=== PATIENT | male | born 1980 | race Caucasian/White ===

== ENCOUNTER 2017-12-24 16:11 | Emergency (ER) | payer SELFPAY ==
[~2017-12-24] VITALS: Ht 175.3 cm; Wt 110.0 kg
[2017-12-24] MEDS ORDERED: LORTAB 5/3255 MG PO (17:15)
[2017-12-24] MEDS ORDERED: MOTRIN800 MG PO (17:15)
[2017-12-24 17:20] VITALS: BP 141/84
== END 2017-12-24 17:20 | disposition home or self-care (01) | DRG 556 ==
LOC: ED 16:11
DX: M79.89 Other specified soft tissue disorders (principal); M25.472 Effusion, left ankle; M25.572 Pain in left ankle and joints of left foot; M79.672 Pain in left foot; F17.210 Nicotine dependence, cigarettes, uncomplicated

== ENCOUNTER 2019-04-21 12:17 | Emergency (ER) | payer SELFPAY ==
[~2019-04-21] VITALS: Ht 175.3 cm; Wt 120.0 kg
[~2019-04-21 12:17] MED LIST: LORTAB 5/3255 MG PO; MOTRIN800 MG PO
[2019-04-21 13:11] LABS: GFR > 60 ML/MIN (>=60 (CALC)); GFR FOR AFR.AMER. > 60 ML/MIN (>=60 (CALC))
[2019-04-21 13:26] LABS: HEMATOCRIT 48.4 % (39.0-50.0); HEMOGLOBIN 16.1 g/dl (14.0-18.0); IMMATURE GRANULOCYTES 0.5 % (0.0-5.0); MEAN CELL VOLUME 92.5 fL CALC (80.0-100.0); MEAN CORPUSCULAR HGB 30.8 pG CALC (26.0-32.0); MEAN CORPUSCULAR HGB CONC 33.3 g/L CALC (32.0-36.0); NEUT# 9.87 thou/uL (1.82-7.42); RED BLOOD COUNT 5.23 mill/uL (4.70-6.10); RED CELL DISTRI WIDTH 12.6 % (11.5-15.5)
[2019-04-21 13:37] LABS: ANION GAP 23 (6-22 (CALC)); BUN 6 mg/dL (9-20); BUN/CREATININE RATIO 9 (12-20 (CALC)); CARBON DIOXIDE 19 mmol/l (22-30); CHLORIDE 102 mmol/l (95-108); CREATININE 0.6 mg/dL (0.7-1.3); GFR > 60 ML/MIN (>=60 (CALC)); GFR FOR AFR.AMER. > 60 ML/MIN (>=60 (CALC)); POTASSIUM 4.3 mmol/l (3.5-5.1); SODIUM 140 mmol/l (137-146)
[2019-04-21 16:06] VITALS: BP 168/82
== END 2019-04-21 15:50 | disposition short-term general hospital (02) | DRG 603 ==
LOC: ED 12:17
PROVIDERS: Family Medicine
DX: L03.211 Cellulitis of face (principal); J98.8 Other specified respiratory disorders; K08.89 Other specified disorders of teeth and supporting structures
CPT/HCPCS: Q9967

== ENCOUNTER 2019-11-02 16:28 | Emergency (ER) | payer SELFPAY ==
[2019-11-02] MEDS ORDERED: ULTRAM50 MG PO (19:04)
[2019-11-02 19:12] VITALS: BP 140/98
== END 2019-11-02 19:15 | disposition home or self-care (01) | DRG 556 ==
LOC: ED 16:28
DX: M25.562 Pain in left knee (principal); M25.462 Effusion, left knee; F17.210 Nicotine dependence, cigarettes, uncomplicated

== ENCOUNTER 2020-05-03 16:32 | Emergency (ER) | payer SELFPAY ==
[~2020-05-03] VITALS: Ht 175.3 cm; Wt 130.0 kg
[~2020-05-03 16:32] MED LIST changes: +ULTRAM50 MG PO
[2020-05-03 18:47] VITALS: BP 146/77
== END 2020-05-03 18:53 | disposition home or self-care (01) | DRG 556 ==
LOC: ED 16:32
DX: M25.571 Pain in right ankle and joints of right foot (principal); F17.210 Nicotine dependence, cigarettes, uncomplicated

== ENCOUNTER 2020-08-11 17:26 | Emergency (ER) | payer OTHER ==
[~2020-08-11] VITALS: Ht 175.3 cm; Wt 127.0 kg
[2020-08-11] MEDS ORDERED: TESTOST CYP200 MG/ML IM (19:49)
[2020-08-11 20:18] LABS: HEMATOCRIT 44.3 % (39.0-50.0); HEMOGLOBIN 14.5 g/dl (14.0-18.0); IMMATURE GRANULOCYTES 0.3 % (0.0-5.0); MEAN CELL VOLUME 92.9 fL CALC (80.0-100.0); MEAN CORPUSCULAR HGB 30.4 pG CALC (26.0-32.0); MEAN CORPUSCULAR HGB CONC 32.7 g/dL CAL (32.0-36.0); NEUT# 8.19 thou/uL (1.82-7.42); RED BLOOD COUNT 4.77 mill/uL (4.70-6.10); RED CELL DISTRI WIDTH 13.4 % (11.5-15.5)
[2020-08-11 20:36] LABS: ALBUMIN 4.4 g/dL (3.2-5.0); ALKALINE PHOSPHATASE 78 u/l (38-126); ANION GAP 14 (6-22 (CALC)); BILIRUBIN, TOTAL 0.6 mg/dL (0.0-1.4); BUN 9 mg/dL (9-20); BUN/CREATININE RATIO 13 (12-20 (CALC)); CHLORIDE 103 mmol/l (95-108); CREATININE 0.8 mg/dL (0.7-1.3); GFR > 60 ML/MIN (>=60 (CALC)); GFR FOR AFR.AMER. > 60 ML/MIN (>=60 (CALC)); POTASSIUM 4.3 mmol/l (3.5-5.1); SGOT/AST 35 u/l (17-59); SODIUM 137 mmol/l (137-146); TOTAL PROTEIN 7.4 g/dL (6.3-8.2)
[2020-08-11 20:39] LABS: CARBON DIOXIDE 24 mmol/l (22-30)
[2020-08-11] MEDS ORDERED: INDOCIN25 MG PO (21:22)
[2020-08-11] MEDS ORDERED: COLCHICINE0.6 M2 PO (21:22)
[2020-08-11 21:40] VITALS: BP 151/89
== END 2020-08-11 21:41 | disposition home or self-care (01) | DRG 554 ==
LOC: ED 17:26
PROVIDERS: Emergency Medicine
DX: M10.022 Idiopathic gout, left elbow (principal); F17.210 Nicotine dependence, cigarettes, uncomplicated